=== PATIENT | female | born 1985 | race Caucasian/White ===

== ENCOUNTER 2021-11-14 20:35 | Inpatient (IN) ==
[2021-11-15] MEDS ORDERED: Ondansetron 4 mg VIAL 2 MG/ML 2 ml VIAL IV PRN (00:24)
[2021-11-15 00:59] LABS: ABS Eosinophils 0.1 10^3/ul (0-0.6); ABS Monocytes 0.5 10^3/ul (0-0.8); ABS Neutrophils 2.1 10^3/ul (1.5-7.7); Eosinophil % 2.7 %; Hematocrit 32 % (35-47); Hemoglobin 10.9 g/dL (12.0-16.0); Lymphocyte % 42.5 %; Mean Corpuscular HGB Conc 34 g/dL (31-36); Mean Corpuscular Hemoglobin 31 pg (27-31); Mean Corpuscular Volume 91 fL (80-97); Mean Platelet Volume 8.9 fL (7.4-10.4); Platelet Count 182 10^3/uL (150-450); Red Blood Count 3.48 10^6 /uL (3.70-4.87); Red Cell Distribution Width 13 % (10-15); White Blood Count 4.7 10^3/uL (3.5-10.8)
[2021-11-15 01:25] LABS: Albumin 3.3 g/dL (3.2-5.2); Albumin/Globulin Ratio 1.5 (1-3); Calcium 7.2 mg/dL (8.6-10.3); Globulin 2.2 g/dL (2-4); Potassium 4.1 mmol/L (3.5-5.0); Total Bilirubin 0.6 mg/dL (0.2-1.0); Total Protein 5.5 g/dL (6.4-8.9); eGFR CKD-EPI 66.4 (>60)
[2021-11-15] MEDS ORDERED: Dextrose 50% Syringe 50 ml 25 GM/50 ML SYRINGE IV PUSH PRN (03:57)
[2021-11-15 05:57] LABS: INR 1.09 (0.86-1.15)
[2021-11-15 07:29] LABS: TSH Ultra Thyroid Stim Horm 1.79 mcIU/mL (0.34-5.60)
[2021-11-15 07:39] LABS: Folate 14.76 ng/mL (5.90-24.80)
[2021-11-15] MEDS: cefTRIAXone 1 gm/50 mL D5W 1 GM/50 ML BAG IV SCH ×2 (08:56→12:30)
[2021-11-15] MEDS: PROPRANOLOL 160 MG PO SCH (09:00)
[2021-11-15] MEDS: DULoxetine DR 60 mg CAP PO SCH (09:00)
[2021-11-16 07:06] LABS: ABS Eosinophils 0.1 10^3/ul (0-0.6); ABS Lymphocytes 1.7 10^3/ul (1.0-4.8); ABS Monocytes 0.4 10^3/ul (0-0.8); ABS Neutrophils 2.1 10^3/ul (1.5-7.7); Eosinophil % 2.9 %; Hematocrit 34 % (35-47); Hemoglobin 11.4 g/dL (12.0-16.0); Lymphocyte % 38.7 %; Mean Corpuscular HGB Conc 34 g/dL (31-36); Mean Corpuscular Hemoglobin 31 pg (27-31); Mean Corpuscular Volume 91 fL (80-97); Mean Platelet Volume 8.5 fL (7.4-10.4); Platelet Count 202 10^3/uL (150-450); Red Blood Count 3.72 10^6 /uL (3.70-4.87); Red Cell Distribution Width 13 % (10-15); White Blood Count 4.3 10^3/uL (3.5-10.8)
[2021-11-16 07:49] LABS: Albumin 3.3 g/dL (3.2-5.2); Albumin/Globulin Ratio 1.4 (1-3); Calcium 7.9 mg/dL (8.6-10.3); Globulin 2.4 g/dL (2-4); Potassium 4.1 mmol/L (3.5-5.0); Total Bilirubin 0.5 mg/dL (0.2-1.0); Total Protein 5.7 g/dL (6.4-8.9); eGFR CKD-EPI 115.8 (>60)
[2021-11-16] MEDS: PROPRANOLOL 160 MG PO SCH (08:38)
[2021-11-16] MEDS: DULoxetine DR 60 mg CAP PO SCH (08:39)
[2021-11-16] MEDS: cefTRIAXone 1 gm/50 mL D5W 1 GM/50 ML BAG IV SCH (08:39)
[2021-11-16 09:10] LABS: C Reactive Protein 15.63 mg/L (<8.01)
[2021-11-16 10:41] LABS: Erythrocyte Sed Rate 65 mm/Hr (0-19)
[2021-11-16] MEDS ORDERED: LORazepam 2 mg VIAL 1 ml IV PUSH PRN (12:48)
[2021-11-16] MEDS ORDERED: Lorazepam PYXIS KEY PRN (12:48)
[2021-11-16] MEDS ORDERED: Insulin GLARGINE 100 un/ml 10 ml VIAL SUBCUT SCH (21:00)
[2021-11-17] MEDS: DULoxetine DR 60 mg CAP PO SCH (07:48)
[2021-11-17] MEDS: Lidocaine PATCH 5% PATCH TRANSDERM SCH (07:49)
[2021-11-17] MEDS: cefTRIAXone 1 gm/50 mL D5W 1 GM/50 ML BAG IV SCH (07:49)
[2021-11-17] MEDS: PROPRANOLOL 160 MG PO SCH (07:50)
[2021-11-17 09:02] LABS: ABS Eosinophils 0.2 10^3/ul (0-0.6); ABS Lymphocytes 1.7 10^3/ul (1.0-4.8); ABS Monocytes 0.4 10^3/ul (0-0.8); ABS Neutrophils 2.6 10^3/ul (1.5-7.7); Eosinophil % 3.2 %; Hematocrit 34 % (35-47); Hemoglobin 11.3 g/dL (12.0-16.0); Lymphocyte % 35.2 %; Mean Corpuscular HGB Conc 34 g/dL (31-36); Mean Corpuscular Hemoglobin 30 pg (27-31); Mean Corpuscular Volume 90 fL (80-97); Mean Platelet Volume 8.4 fL (7.4-10.4); Nucleated Red Blood Cells % 0.1; Platelet Count 214 10^3/uL (150-450); Red Blood Count 3.73 10^6 /uL (3.70-4.87); Red Cell Distribution Width 13 % (10-15); White Blood Count 4.9 10^3/uL (3.5-10.8)
[2021-11-17 09:10] LABS: INR 1.11 (0.86-1.15)
[2021-11-17 09:16] LABS: Calcium 8.2 mg/dL (8.6-10.3); Potassium 4.2 mmol/L (3.5-5.0)
[2021-11-17 09:22] LABS: eGFR CKD-EPI 115.4 (>60)
[2021-11-17] MEDS ORDERED: Dextrose 50% Syringe 50 ml 25 GM/50 ML SYRINGE IV PUSH PRN (09:45)
[2021-11-17 16:34] LABS: Urine Potassium Concentration 33.8 mmol/L
[2021-11-17] MEDS ORDERED: Insulin GLARGINE 100 un/ml 10 ml VIAL SUBCUT SCH (21:00)
[2021-11-18 07:13] VITALS: BP 125/72
[2021-11-18 07:23] LABS: ABS Eosinophils 0.2 10^3/ul (0-0.6); ABS Lymphocytes 1.8 10^3/ul (1.0-4.8); ABS Monocytes 0.4 10^3/ul (0-0.8); ABS Neutrophils 2.6 10^3/ul (1.5-7.7); Eosinophil % 3.6 %; Hematocrit 34 % (35-47); Hemoglobin 11.6 g/dL (12.0-16.0); Lymphocyte % 36.3 %; Mean Corpuscular HGB Conc 35 g/dL (31-36); Mean Corpuscular Hemoglobin 31 pg (27-31); Mean Corpuscular Volume 90 fL (80-97); Mean Platelet Volume 8.3 fL (7.4-10.4); Platelet Count 228 10^3/uL (150-450); Red Blood Count 3.74 10^6 /uL (3.70-4.87); Red Cell Distribution Width 13 % (10-15)
[2021-11-18 08:57] LABS: Calcium 8.7 mg/dL (8.6-10.3)
[2021-11-18] MEDS: DULoxetine DR 60 mg CAP PO SCH (09:55)
[2021-11-18] MEDS: Lidocaine PATCH 5% PATCH TRANSDERM SCH (09:55)
[2021-11-18] MEDS: cefTRIAXone 1 gm/50 mL D5W 1 GM/50 ML BAG IV SCH (09:55)
[2021-11-18] MEDS: PROPRANOLOL 160 MG PO SCH (09:56)
[2021-11-18] MEDS ORDERED: Lactated Ringers 1000 ml BAG 1,000 ML IV SCH (15:00)
[2021-11-18] MEDS ORDERED: Insulin GLARGINE 100 un/ml 10 ml VIAL SUBCUT SCH (21:00)
== END 2021-11-18 15:31 | disposition home or self-care (01) | DRG 137 ==
LOC: SUATTDRO 22:42 → MED 22:42
PROVIDERS: ADMIT Internal Medicine; ATTEND Internal Medicine